=== PATIENT | female | born 1990 | race Hispanic/Latino ===

== ENCOUNTER 2022-04-14 03:31 | Inpatient (IN) | payer OTHER, SELFPAY ==
[2022-04-13 13:48] LABS: Absolute Lymphocytes (CBC) 2.5 K/uL (0.7-4.9); Hematocrit 36.7 % (36.0-45.0); Lymphocytes % 27.7 % (15.3-44.8); MPV 9.2 fL (7.6-11.3); RBC Red Blood Cell Count 3.88 M/uL (3.86-4.86)
[2022-04-13 13:52] LABS: Urine Appearance Clear (Clear); Urine Bilirubin Negative (Negative); Urine Blood Negative (Negative); Urine Color Yellow (Yellow); Urine Glucose Negative (Negative); Urine Protein Negative (Negative); Urine Urobilinogen 0.2 mg/dL (0.2-1.0)
[2022-04-13 13:53] LABS: Protime INR 0.9
[2022-04-13 14:30] LABS: Urine Microscopic Reflex ORDER UMIC
[2022-04-13 14:32] LABS: Urine Bacteria <20 /HPF (<20); Urine RBC <5 /HPF (NONE SEEN)
[2022-04-14 00:18] LABS: RPR (Rapid Plasma Reagin) NON-REACT (NON-REACT)
[~2022-04-14 03:31] MED LIST: CEFAZOLIN 2 GM IN 0.9% NACL 2 GM/100 ML BAG IVPB ONE; CEFAZOLIN SODIUM 2 GM in NA CHLORIDE 0.9% 100 ML IVPB SCH
[2022-04-14] MEDS ORDERED: NA CIT/CITRIC AC 30 ML ORAL UDC PO ONE ×3 (04:24→06:33)
[2022-04-14] MEDS ORDERED: METOCLOPRAMIDE 10 MG/2mL INJ IV SCH ×2 (05:00→06:28)
[2022-04-14] MEDS ORDERED: Ringers Lactate 1,000 ML IV SCH (05:00)
[2022-04-14 05:20] VITALS: BMI 30.4
[2022-04-14] MEDS: Ringers Lactate 1,000 ML IV PRN ×2 (05:30→06:30)
[2022-04-14] MEDS ORDERED: CEFAZOLIN 2 GM IN 0.9% NACL 2 GM/100 ML BAG ONE (06:07)
[2022-04-14] MEDS ORDERED: FAMOTIDINE 20 MG/2 ML VIAL IV SCH ×2 (06:29→09:00)
[2022-04-14] MEDS: CEFAZOLIN SODIUM 2 GM in NA CHLORIDE 0.9% 100 ML IVPB ONE ×2 (06:42→16:15)
[2022-04-14] MEDS ORDERED: NA CHLORIDE 0.9% 0 ML ONE (06:47)
[2022-04-14 06:51] VITALS: O2SAT 98
[2022-04-14] MEDS ORDERED: NA CIT/CITRIC AC 30 ML ORAL UDC PO PRN (06:57)
[2022-04-14] MEDS ORDERED: OXYTOCIN 10 UNIT/ML ML ONE ×3 (07:07→08:31)
[2022-04-14] MEDS ORDERED: MORPHINE SULFATE/PF 1 MG/ML (10 ML AMP) ONE (07:07)
[2022-04-14] MEDS ORDERED: EPHEDRINE SULF 50 MG/ML VIAL ONE (07:07)
[2022-04-14] MEDS ORDERED: LIDOCAINE 1% MPF 5 ML VIAL ONE (07:11)
[2022-04-14] MEDS ORDERED: METHYLERGONOVINE 0.2MG/ML AMP IM ONE ×2 (07:15→07:22)
[2022-04-14] MEDS ORDERED: CARBOPROST TROME 250 MCG/ML IM ONE (07:15)
[2022-04-14] MEDS ORDERED: MIDAZOLAM HCL 2 MG/2 ML INJ ONE (07:53)
[2022-04-14] MEDS ORDERED: ONDANSETRON 4 MG (ODT) TAB PO PRN (08:22)
[2022-04-14] MEDS ORDERED: DIPHENHYDRAMINE 25 MG TAB/CAP PO PRN (08:22)
[2022-04-14] MEDS ORDERED: ACETAMINOPHEN 500 MG TAB PO PRN ×2 (08:22)
[2022-04-14] MEDS ORDERED: Oxycodone HCl/Acetaminophen 1 TAB TAB PO PRN ×2 (08:22)
[2022-04-14] MEDS ORDERED: KETOROLAC 30 MG/ML INJ IM PRN (08:22)
[2022-04-14] MEDS ORDERED: KETOROLAC 30 MG/ML INJ IV PRN (08:22)
[2022-04-14] MEDS ORDERED: BISACODYL 10 MG RECTAL SUPP RC PRN (08:22)
[2022-04-14] MEDS ORDERED: ONDANSETRON 4 MG/2 ML VIAL IV PRN (08:22)
[2022-04-14] MEDS ORDERED: D5LR 1,000 ML with OXYTOCIN 20 UNIT IV SCH ×2 (09:00)
[2022-04-14] MEDS ORDERED: OXYTOCIN/LR 20 UNIT/1,000 ML BAG IV SCH (09:00)
[2022-04-14] MEDS ORDERED: PROMETHAZINE INJ 25 MG/ML AMP IV PRN (12:19)
--- NOTE | 2022-04-14 12:36 | OP ---
Surgeon: Fredrikc Lucero MD Anesthesiologist: Dr. Hollingsworth and associates. Indications: A 31-year-old female, for repeat section, 39 weeks 1 day. Full preoperative c ounseling concerning procedure and possible complications including infection; blood loss; anesthetic complications; injury to bladder, bowel, ureter; postoperative complications; clots in legs; and pne umonia. The patient knows fully well this does not constitute all the possible problems that could o ccur during or following surgery. Anesthesia: Spinal block anesthesia. Procedure In Detail: After prepping and draping, time-out was performed. A Pfannenstiel incision wa s created over previous incision site. The incision was carried to the fascia. The fascia was incis ed and the incision carried transversely bilaterally. Anterior fascial plane was developed with both blunt and sharp dissection. Peritoneal defect was seen and entered. Low transverse incision was ma de. A 5-pound 13-ounce female was delivered through the incision without difficulty. Loose nuchal c ord x1. Apgars 9 and 9. Placenta removed manually. Uterus cleared of clot and blood and exterioriz ed. Cervical os dilated with ring clamp. Uterus closed with a running locked stitch of 1 chromic fo llowed by 4 to 5 [id number] stitches in the right angle for complete hemostasis. Estimated bloo d loss during procedure 700 cc or less. Gutters clear of clot and blood. No further bleeding seen a long the incision line. The muscles were reapproximated using 2 interrupted sutures of 0 Vicryl. Th e fascia was closed with 1 Vicryl running from either angle to the midline. Subcutaneous tissue was closed with 2-0 plain and Dexon 3-0 was used for subcuticular stitch closing of the incision. 2 g of Ancef for prophylaxis. The patient tolerated all procedures well and transferred back to the [facility] room in good condition. Final Diagnoses: Term intrauterine , repeat section, spinal block anesthesia. VERONICA/JOHN Voice ID: [id number] Report ID: [id number]
[2022-04-14] MEDS ORDERED: CEFAZOLIN 2 GM IN 0.9% NACL 2 GM/100 ML BAG IVPB ONE (16:00)
--- NOTE | 2022-04-14 18:49 | P.OP ---
Office Assistant: Bautista Helton (Co-Surgeons - Dr. Lucero / Danie) Preoperative diagnosis: History of Multiple C-Sections Postoperative diagnosis: History of Multiple C-Sections Primary procedure: Anesthesia: Spinal Estimated blood loss: 650 cc Specimen: Placenta Findings: Healthy Female infant delivered 9 and 9 Complications: None Transferred to: Recovery Room Condition: Good
[2022-04-15] MEDS: IBUPROFEN 600 MG TAB PO PRN ×2 (04:10→16:16)
[2022-04-15] MEDS ORDERED: MAGNESIUM HYDROXIDE 8% 30 ML PO PRN (08:22)
[2022-04-15] MEDS ORDERED: Oxycodone HCl/Acetaminophen 1 TAB TAB PO ONE (10:35)
[2022-04-16 07:25] VITALS: BP 130/85; TEMP 98.4
--- NOTE | 2022-04-16 13:35 | DS ---
Date of Discharge: 04/16/2022 Postoperatively, has done quite well, ambulating, voiding. Lochia is normal. Her incision has had n o problems. She is dismissed this morning. She will cotton picker her prescription for tramadol for analg esia. She is to report any temperature elevation of 100 degrees or greater, severe pain, heavy bleed ing, or any other type of abnormalities. She already has an appointment for next week. We did talk to her though about the fact that she had her baby wrapped up in a tight blanket and sleep with her i n the bed and she knows this could lead to SIDS. Full discussion again before she leaves. We discussed this in the office prior to her admission, but apparently it has not taken effect. We will go over it once or twice more. Blood loss estimated at 700 cc. Low-transverse incision, spina l block anesthesia. No post spinal block problems. She will be . Full discussion abou t what to watch for. Tdap has been offered during the . Final Diagnoses: Term intrauterine , repeat section, spinal block anesthesia. VERONICA/JOHN Voice ID: [id number] Report ID: [id number]
--- NOTE | 2022-04-16 13:35 | PN ---
H and H with expected change. Lochia is minimal. The patient has no complaints or problem s other than her breast milk has not come in yet, which I explained to her will not happen until patricia rrow or even the next day. We will discontinue the IV and Sena, begin ambulation and p.o. intake. She has only had 1 Motrin since surgery. Doing quite well. If she continues good progress, will go home tomorrow. VERONICA/JOHN Voice ID: [id number] Report ID: [id number]
--- NOTE | 2022-04-16 15:29 | OP ---
Date of Procedure: 04/14/2022 Surgeon: Bautista Helton MD, Preoperative Diagnosis: History of multiple C-sections. Postoperative Diagnosis: History of multiple C-sections. Procedure Performed: with Dr. Fredrick Lucero and myself co-surgeons. Dr. 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 Anesthesia: Spinal. Estimated Blood Loss: Less than 650 cc. Specimen: Placenta. Findings: Healthy female delivered with 9 and 9. Complication: None. The patient transferred to recovery room in good condition. Procedure In Detail: After informed consent was obtained from the patient, the patient was prepped a nd draped in the usual sterile fashion. After adequate anesthesia was achieved with spinal anesthesi a, a Pfannenstiel incision was created over the previous incision site. Incision was carried down th rough the fascia using a 10 blade. The fascia was incised and carried transversely bilaterally. The anterior fascial plane was developed with blunt and sharp dissection using a 10 blade as well as don nt dissection as described. Peritoneal cavity defect was seen and entered sharply. A low transverse incision was made. A 5-pound 13-ounce female was delivered through the incision without difficulty. Loose nuchal cord x1. Apgars 9 and 9. Placenta was removed manually. Uterus cleared of clot and blood exteriorized. Cervical os dilated with ring clamp by Dr. Lucero. The uterus was closed with a running lock stitch of #1 chromic, followed by 4-5 [id number] stitches of the right angle for co mplete hemostasis. Estimated blood loss during procedure was less than 650 cc. Gutters were cleared of clot. No further bleeding was seen along the incisions. The muscles were reapproximated using 2 interrupted 0 Vicryl sutures. The fascia was then closed using a #1 Vicryl running from either angl e to the midline from lateral to medial. Subcutaneous tissues were closed with 2-0 plain and Dexon 3 -0. The patient tolerated the procedure well without evidence of complication and transferred to PAC U in good condition. All counts were correct at the end of the case. Please see Dr. Lucero's note fo r full details regarding his aspect of the operation. Thank you for allowing me to assist in the care of this patient. TK/MODL Voice ID: [id number] Report ID: [id number]
== END 2022-04-16 09:00 | disposition home or self-care (01) | DRG 788 ==
LOC: 2ND-WC 03:31
PROVIDERS: ADMIT Specialist; ATTEND Specialist
PROC: 10D00Z1 Extraction of Products of Conception, Low, Open Approach (ICD-10-PCS; principal; 2022-04-14 07:30)
DX: O34.211 Maternal care for low transverse scar from previous cesarean delivery (principal); Z3A.39 39 weeks gestation of pregnancy; Z37.0 Single live birth; Z20.822 Contact with and (suspected) exposure to COVID-19
CPT/HCPCS: 36415; 81003; 81015; 85014; 85025; 85610; 85730; 86592; 86900; 86901; 87086; 87088; 88307; J0690; J2210; J2250; J2405; J2550; J2590; J2765; J3490; J7120; J7121; U0003